=== PATIENT | male | born 1980 | race Caucasian/White ===

== ENCOUNTER 2025-01-21 10:32 | Inpatient (IN) | payer SELFPAY ==
[~2025-01-21] VITALS: Ht 167.6 cm; Wt 90.7 kg
[2025-01-21] VITALS (27 sets, daily range): BP systolic 34–250; BP diastolic 16–50; PULSE 33–130; RESP 18–35; TEMP 32.05812–36.6696; O2SAT 90–96
[2025-01-21] MEDS: PIPERACILLIN/TAZO 3.375G/50ML 50 ML IV ONE (09:35)
[2025-01-21] MEDS: VANCOMYCIN 1G PREMIX 200 ML IV ONE (09:35)
[2025-01-21] MEDS: SODIUM CHLORIDE 0.9% (SEPSIS BOLUS) IV ONE (11:59)
[2025-01-21 12:23] LABS: CHLORIDE 116 mEq/L (98-107); POTASSIUM 4.8 mEq/L (3.5-5.1)
[2025-01-21 12:24] LABS: CALCIUM 10.7 mg/dL (8.7-10.4); HEMATOCRIT. 25.4 % (42.0-52.0); MEAN CORPUSCULAR HEMOGLOBIN 33.1 pg (28.0-32.0); MEAN CORPUSCULAR HGB CONC 26.1 g/dL (31.0-37.0); MEAN CORPUSCULAR VOLUME 126.9 fL (80.0-94.0); MEAN PLATELET VOLUME 11.4 fl (7.4-10.4); RED CELL DISTRIBUTION WIDTH 18.2 % (11.6-14.6); WHITE BLOOD COUNT 4.2 x1000/uL (4.5-11.0)
[2025-01-21 12:29] LABS: CREATININE 1.8 mg/dL (0.6-1.3); GLUCOSE 66 mg/dL (70-105); UREA NITROGEN BLOOD 7 mg/dL (9-23)
[2025-01-21 12:31] LABS: ALANINE AMINOTRANSFERASE 60 IU/L (10-49); ALBUMIN 1.3 g/dL (3.2-4.8); ASPARTATE AMINOTRANSFERASE 212 IU/L (<34); BILIRUBIN DIRECT 0.9 mg/dL (<=3.0); BILIRUBIN TOTAL 1.5 mg/dL (0.1-1.0); PROTEIN TOTAL 3.6 g/dL (6.0-8.3)
[2025-01-21 12:34] LABS: SODIUM 159 mEq/L (136-145)
[2025-01-21 12:35] LABS: AMMONIA 636 uMol/L (<32); CARBON DIOXIDE < 10 mEq/L (21-32); TROPONIN I HIGH SENSITIVITY 377 ng/L (3.0-53)
[2025-01-21 12:36] LABS: LACTIC ACID 15.1 mmol/L (0.4-2.0)
[2025-01-21 12:42] LABS: DIFFERENTIAL COMMENT 1
[2025-01-21] MEDS: NOREPINEPHRINE 8MG/250ML PMX 250 ML IV STA (12:42)
[2025-01-21 12:43] LABS: HEMOGLOBIN. 6.6 g/dL (14.0-18.0)
[2025-01-21] MEDS ORDERED: MIDAZOLAM HCL 100 MG in DEXT 5% WATER 80 ML IV ONE (12:45)
[2025-01-21 12:56] LABS: INR 3.3; PROTHROMBIN TIME 31.5 sec (9.6-11.0)
[2025-01-21 12:57] LABS: NUCLEATED RED BLOOD CELLS 1 /100 WBC
[2025-01-21 12:58] LABS: ANISOCYTOSIS 2+; PLATELET ESTIMATE MARKEDLY DECREASED
[2025-01-21 12:59] LABS: PLATELET 27 x1000/uL (130-400)
[2025-01-21] MEDS: VASOPRESSIN 20 UNIT in SODIUM CHLORIDE 0.9% 99 ML IV STA (13:01)
[2025-01-21] MEDS ORDERED: VASOPRESSIN 20 UNIT in SODIUM CHLORIDE 0.9% 99 ML IV PRN (13:15)
[2025-01-21] MEDS ORDERED: PHENYLEPHRINE 100 MG in DEXT 5% WATER 240 ML IV PRN ×2 (13:15→15:15)
[2025-01-21] MEDS: PANTOPRAZOLE SODIUM 40 MG/VIAL IV SCH (13:15)
[2025-01-21] MEDS ORDERED: ONDANSETRON HCL 4MG/2ML INJ IV PRN (13:30)
[2025-01-21] MEDS ORDERED: GUAIFENESIN 200MG/10ML SUGAR FREE UDC PO PRN (13:30)
[2025-01-21] MEDS ORDERED: CLONIDINE 0.1MG TABLET PO PRN (13:30)
[2025-01-21] MEDS ORDERED: MIDAZOLAM 100MG/100ML PREMIX IV PRN (13:30)
[2025-01-21] MEDS ORDERED: VANCOMYCIN 1G PREMIX 200 ML IV SCH (13:30)
[2025-01-21] MEDS ORDERED: IPRATROPIUM/ALBUTEROL 0.5-3(2.5)MG/3ML NEB HHN PRN (13:30)
[2025-01-21] MEDS ORDERED: LORAZEPAM 0.5MG TABLET PO PRN (13:30)
[2025-01-21] MEDS ORDERED: ACETAMINOPHEN 325MG TABLET PO PRN ×2 (13:30)
[2025-01-21] MEDS ORDERED: DOCUSATE SODIUM 100MG CAPSULE PO PRN (13:30)
[2025-01-21] MEDS: NOREPINEPHRINE 8MG/250ML PMX 250 ML IV ONE (14:28)
[2025-01-21] MEDS: PHYTONADIONE 10 MG in DEXTROSE 5% WATER 49 ML IV NR (14:30)
[2025-01-21 14:54] LABS: FOLIC ACID (FOLATE) SERUM > 20.00 ng/mL (>5.38); VITAMIN B12 SERUM 562 pg/mL (211-911)
[2025-01-21 14:54] LABS: BG PO2 50.1 mmHg (83.0-108.0); BG SAMPLE SITE VBG - N/A; BG TOTAL HEMOGLOBIN < 4.5 g/dL (13.5-17.5)
[2025-01-21] MEDS: INSULIN LISPRO 100 UNITS/ML SUBCUT SCH (15:00)
[2025-01-21] MEDS ORDERED: PIPERACILLIN/TAZO 3.375G/50ML 50 ML IV SCH (15:00)
[2025-01-21] MEDS ORDERED: DEXTROSE 50% WATER 50ML SYRINGE IV PRN (15:00)
[2025-01-21] MEDS ORDERED: NOREPINEPHRINE 32 MG in DEXT 5% WATER 218 ML IV PRN (15:15)
[2025-01-21] MEDS: BLOOD SUGAR DIAGNOSTIC STRIP TEST SCH (15:21)
[2025-01-21] MEDS: OCTREOTIDE 1,000 MCG in SODIUM CHLORIDE 0.9% 98 ML IV SCH (16:32)
[2025-01-21] MEDS: PHENYLEPHRINE 100 MG in DEXT 5% WATER 240 ML IV PRN (16:34)
[2025-01-21] MEDS: VASOPRESSIN 20 UNIT in SODIUM CHLORIDE 0.9% 99 ML IV PRN (16:35)
[2025-01-21] MEDS: NOREPINEPHRINE 32 MG in DEXT 5% WATER 218 ML IV PRN (16:35)
[2025-01-21] MEDS: DOPAMINE 400MG/250ML PREMIX 250 ML IV PRN (16:36)
[2025-01-21] MEDS: EPINEPHRINE 10 MG in SODIUM CHLORIDE 0.9% 240 ML IV PRN (16:37)
[2025-01-21] MEDS: DEXT 5%/0.45% NACL 1000ML 1,000 ML IV SCH (16:38)
[2025-01-21] MEDS ORDERED: LACTULOSE ENEMA 1,000ML BOTTLE PR NR (18:00)
[2025-01-22] MEDS ORDERED: VANCOMYCIN 1G PREMIX 200 ML IV SCH (04:00)
[2025-01-22] MEDS ORDERED: LACTULOSE ENEMA 1,000ML BOTTLE PR SCH (09:00)
== END 2025-01-21 20:59 | DRG 720 ==
LOC: ER 10:32 → EDBEDREQ 10:55 → CVICU 12:41 → EDBEDREQSVC 12:42 → EDBEDREQ 12:42
PROVIDERS: ADMIT Internal Medicine; ATTEND Internal Medicine
PROC: 5A12012 Performance of Cardiac Output, Single, Manual (ICD-10-PCS; principal; 2025-01-21)
PROC: 5A1935Z Respiratory Ventilation, Less than 24 Consecutive Hours (ICD-10-PCS; 2025-01-21)
PROC: 06HY33Z Insertion of Infusion Device into Lower Vein, Percutaneous Approach (ICD-10-PCS; 2025-01-21)
PROC: B54BZZA Ultrasonography of Right Lower Extremity Veins, Guidance (ICD-10-PCS; 2025-01-21)
PROC: 0BH17EZ Insertion of Endotracheal Airway into Trachea, Via Natural or Artificial Opening (ICD-10-PCS; 2025-01-21)
PROC: 30233K1 Transfusion of Nonautologous Frozen Plasma into Peripheral Vein, Percutaneous Approach (ICD-10-PCS; 2025-01-21)
PROC: 30233N1 Transfusion of Nonautologous Red Blood Cells into Peripheral Vein, Percutaneous Approach (ICD-10-PCS; 2025-01-21)
PROC: 30233R1 Transfusion of Nonautologous Platelets into Peripheral Vein, Percutaneous Approach (ICD-10-PCS; 2025-01-21)
DX: A41.9 Sepsis, unspecified organism (principal); I46.9 Cardiac arrest, cause unspecified; J96.01 Acute respiratory failure with hypoxia; N17.0 Acute kidney failure with tubular necrosis; G92.8 Other toxic encephalopathy; K92.0 Hematemesis; R65.21 Severe sepsis with septic shock; E46 Unspecified protein-calorie malnutrition; D62 Acute posthemorrhagic anemia; E87.1 Hypo-osmolality and hyponatremia; I21.A1 Myocardial infarction type 2; D68.9 Coagulation defect, unspecified; F41.9 Anxiety disorder, unspecified; D69.6 Thrombocytopenia, unspecified; E87.20 Acidosis, unspecified; E86.1 Hypovolemia; D53.9 Nutritional anemia, unspecified; E11.22 Type 2 diabetes mellitus with diabetic chronic kidney disease; D72.819 Decreased white blood cell count, unspecified; E11.65 Type 2 diabetes mellitus with hyperglycemia; E83.52 Hypercalcemia; E87.0 Hyperosmolality and hypernatremia; F10.10 Alcohol abuse, uncomplicated; K70.30 Alcoholic cirrhosis of liver without ascites; K76.82 Hepatic encephalopathy; N18.9 Chronic kidney disease, unspecified; Z68.30 Body mass index [BMI] 30.0-30.9, adult; Z79.899 Other long term (current) drug therapy; Z51.5 Encounter for palliative care
CPT/HCPCS: 31500; 36415; 36430; 36556; 71045; 80048; 80076; 82140; 82375; 82607; 82746; 82962; 83605; 83930; 84145; 84484; 85025; 86850; 86900; 86920; 86927; 92950; 93005; 94002; 94003; 94070; 94664; 99291; A4606; J1265; J2250; J2354; J2371; J2470; J2543; J3370; J3430; J3490; J7030; J7050; J7060; P9016; P9017; P9034